=== PATIENT | male | born 1945 | race Hispanic/Latino ===

== ENCOUNTER 2018-09-18 16:38 | Inpatient (IN) | payer MEDICARE ==
[2018-09-18 16:46] VITALS: BMI 35.9
--- NOTE | 2018-09-18 17:56 | C.PDOC ---
History Of Present Illness Patient is a 73 year old male, with a PMHx of diabetes, who presents to the ED c/o bilateral lower extremity swelling with associated pain and watery yellow and green drainage that has been present for the past week. Patient reports that he has had prior similar symptoms in the past. Patient claims that his diabetes runs in the family and is "not able to be treated by any medication". Patient also refuses to have his blood taken from his arms, only from his hands. He denies any CP, SOB, fever, abdominal pain, nausea, vomiting, or diarrhea. Time Seen by Provider: 09/18/18 17:14 Chief Complaint (Nursing): Abnormal Skin Integrity History Per: Patient History/Exam Limitations: no limitations Onset/Duration Of Symptoms: Days (one week) Current Symptoms Are (Timing): Still Present Quality Of Symptoms: Painful, Swollen, Draining Recent travel outside of the [place]: No Additional History Per: Patient Past Medical History Reviewed: Historical Data, Nursing Documentation, Vital Signs Vital Signs: Last Vital Signs Temp 98.5 F 09/18/18 16:48 Pulse 94 H 09/18/18 16:48 Resp 16 09/18/18 16:48 BP 170/63 H 09/18/18 16:48 Pulse Ox 97 09/18/18 16:48 - Medical History PMH: No Chronic Diseases Surgical History: No Surg Hx Family History: States: No Known Family Hx - Social History Hx Alcohol Use: No Hx Substance Use: No - Immunization History Hx Tetanus Toxoid Vaccination: No Hx Influenza Vaccination: No Hx Pneumococcal Vaccination: No Review Of Systems Except As Marked, All Systems Reviewed And Found Negative. Constitutional: Negative for: Fever Cardiovascular: Negative for: Chest Pain Respiratory: Negative for: Shortness of Breath Gastrointestinal: Negative for: Nausea, Vomiting, Abdominal Pain, Diarrhea Musculoskeletal: Positive for: Leg Pain (bilateral lower leg pain, swelling, and drainage ) Physical Exam - Physical Exam Appears: Non-toxic, No Acute Distress Skin: Warm, Other (opened wounds to anterior and posterior lower legs draining yellowish green fluid ) Head: Atraumatic, Normacephalic Eye(s): bilateral: Normal Inspection Oral Mucosa: Moist Neck: Normal ROM, Supple Chest: Symmetrical, No Deformity Cardiovascular: Rhythm Regular, No Murmur Respiratory: Normal Breath Sounds, No Rales, No Rhonchi, No Wheezing Gastrointestinal/Abdominal: Soft, No Tenderness, Other (obese) Back: Normal Inspection, No CVA Tenderness Extremity: Pedal Edema (3+ pitting edema to the knees), Swelling (bilateral lower extremities), Other (erythematous bilateral lower legs) Neurological/Psych: Oriented x3, Normal Speech, Normal Motor Gait: Steady ED Course And Treatment - Laboratory Results Result Diagrams: 09/18/18 18:17 09/18/18 18:45 O2 Sat by Pulse Oximetry: 97 (on RA) Pulse Ox Interpretation: Normal Medical Decision Making Medical Decision Making: Plan: Labs Blood Culture Disposition - Disposition Disposition: HOSPITALIZED Disposition Time: 19:04 Condition: FAIR Forms: [facility] (Guyanese) - Clinical Impression Clinical Impression: Cellulitis, Skin ulcer - 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 - Scribe Statement The provider has reviewed the documentation as recorded by the Scribe Vilma Barth All medical record entries made by the Scribe were at my direction and personally dictated by me. I have reviewed the chart and agree that the record accurately reflects my personal performance of the history, physical exam, medical decision making, and the department course for this patient. I have also personally directed, reviewed, and agree with the discharge instructions and disposition. Physician Patient Turnover Patient Signed Over To: Odalis Louis Handoff Comments: PEnding labs and dispo
[2018-09-18 18:34] LABS: BASO % 0.4 % (0.0-2.0); EOS # 0.3 K/uL (0.0-0.7); EOS % 2.9 % (0.0-4.0); HEMOGLOBIN 14.8 g/dL (12.0-18.0); LYMPH # 2.2 K/uL (1.0-4.3); LYMPH % 24.4 % (20.0-40.0); MEAN CELL VOLUME 93.8 fL (80.0-94.0); MEAN CORPUSCULAR HEMOGLOBIN 31.6 pg (27.0-31.0); MEAN CORPUSCULAR HGB CONC 33.7 g/dL (33.0-37.0); MEAN PLATELET VOLUME 8.2 fL (7.2-11.7); MONO # 0.9 K/uL (0.0-0.8); MONO % 9.7 % (0.0-10.0); NEUT # 5.6 K/uL (1.8-7.0); NEUT % 62.6 % (50.0-75.0); RBC 4.67 Mil/uL (4.40-5.90); RED CELL DISTRIBUTION WIDTH 13.2 % (11.5-14.5); WHITE BLOOD COUNT 8.9 K/uL (4.8-10.8)
[2018-09-18 18:49] LABS: INR 1.1; PROTHROMBIN TIME 11.8 SECONDS (9.7-12.2)
[2018-09-18 19:01] LABS: ALB/GLOB RATIO 1.3 (1.0-2.1); ALBUMIN 4.1 g/dL (3.5-5.0); ALT/SGPT 17 U/L (21-72); AST/SGOT 27 U/L (17-59); BLOOD UREA NITROGEN 18 mg/dL (9-20); CALCIUM 8.9 mg/dl (8.6-10.4); GFR NON-AFRICAN AMERICAN > 60
[2018-09-18] MEDS ORDERED: Piperacillin/Tazobact 3.375 gm 100 ML IV STA (19:05)
[2018-09-18] MEDS ORDERED: Vancomycin 1 GM 1 GM/250 ML BAG IV STA (19:05)
[2018-09-18] MEDS ORDERED: Piperacillin/Tazobact 3.375 gm 100 ML IVPB ONE (19:19)
[2018-09-18] MEDS ORDERED: Vancomycin 1 GM 1 GM/250 ML BAG IVPB ONE (19:49)
--- NOTE | 2018-09-18 19:58 | CP.PCM.HP ---
<Emely Galeano - Last Filed: 09/18/18 23:22> History of Present Illness - History of Present Illness History of Present Illness: cc: "my leg is oozing" Mr. Beltran is a 73 year old male with a PMH of diabetes BIBA for worsening bilateral lower extremity ulcers. He states that the leg wound shave grown over the last 3 months. Since 1 week ago, the ulcers would pop on their own and "water" would leak out of them. He started popping the additional wounds to make them heal sooner. The largest wound on his L niño was popped yesterday and drained clear liquid that dried light yellow and started to smell. The largest wound on his R niño popped today and released yellow green purulent discharge for over an hour. His landlord encouraged him to go to the ED since the smell was overwhelming. The patient is unable to reach his feet and has not washed his legs since getting these leg wounds. Previous episodes of leg wounds have not popped, rather ulcerated and went away on their own. PMH: DM Med: none All: seasonal allergies. Reports nausea and gagging when smelling eggs and pork PSxHx: denies FamHx: Diabetes on Father's [place] side of the family. Father - emphysema SocHx: quit smoking at 21, denies ever alcohol, ever illicit drugs. Lives by himself in apartment. 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 He retired after his repeat trips to [facility] and his life as a member of the [employer]. DNR/DNI Proxy: none PMD: none Present on Admission - Present on Admission Any Indicators Present on Admission: Yes History of Uncontrolled Diabetes: Yes Review of Systems - Constitutional Constitutional: Weight Gain. absent: Chills, Fever, Weakness - EENT Eyes: absent: Blurred Vision, Diplopia, Discharge Nose/Mouth/Throat: Nasal Congestion, Nasal Trauma. absent: Nasal Discharge, Dysphagia, Hoarsness, Odynophagia - Cardiovascular Cardiovascular: Leg Edema, Leg Ulcers. absent: Chest Pain, Dyspnea, Palpitations - Respiratory Respiratory: absent: Cough, Dyspnea, Chest Congestion - Gastrointestinal Gastrointestinal: absent: Constipation, Diarrhea, Nausea, Vomiting - Genitourinary Genitourinary: absent: Difficulty Urinating, Dysuria, Nocturia, Urinary Incontinence - Musculoskeletal Musculoskeletal: Joint Swelling, Myalgias, Numbness. absent: Tingling - Integumentary Integumentary: Lesions, New Lesions - Neurological Neurological: Numbness. absent: Burning Sensations, Syncope, Tingling - Hematologic/Lymphatic Hematologic: absent: Easy Bleeding, Easy Bruising Past Patient History - Past Social History Smoking Status: Former Smoker Alcohol: None Drugs: Denies Home Situation {Lives}: Alone - ENDOCRINE/METABOLIC Hx Endocrine Disorders: Yes Hx Diabetes Mellitus Type 2: Yes - PSYCHIATRIC Hx Substance Use: No - SURGICAL HISTORY Hx Surgeries: No Meds Allergies/Adverse Reactions: Allergies Allergy/AdvReac Type Severity Reaction Status Date / Time EGG Allergy Verified 09/18/18 16:46 PORK Allergy Verified 09/18/18 16:46 trees Allergy Uncoded 09/18/18 16:46 Physical Exam - Constitutional Appears: Non-toxic, No Acute Distress - Head Exam Head Exam: ATRAUMATIC, NORMOCEPHALIC - Eye Exam Eye Exam: EOMI, Normal appearance, PERRL Pupil Exam: NORMAL ACCOMODATION - ENT Exam ENT Exam: Mucous Membranes Dry - Neck Exam Neck exam: Negative for: Lymphadenopathy, Thyromegaly - Respiratory Exam Respiratory Exam: Clear to Auscultation Bilateral, NORMAL BREATHING PATTERN. absent: Rales, Rhonchi, Wheezes - Cardiovascular Exam Cardiovascular Exam: REGULAR RHYTHM, +S1, +S2. absent: Systolic Murmur - GI/Abdominal Exam GI & Abdominal Exam: Distended, Normal Bowel Sounds, Soft. absent: Guarding, Rebound, Tenderness Additional comments: morbidly obese - Extremities Exam Extremities exam: Positive for: pedal edema, pedal pulses present. Negative for: calf tenderness Additional comments: bilateral LE edema distal to knees R leg warm to touch, erythematous with multiple open wounds L leg normo-temperature, erythematous with multiple open wounds wounds are on anterior surface of legs; no open wounds on posterior surface 3+ bilateral pitting edema - Back Exam Back exam: NORMAL INSPECTION. absent: CVA tenderness (L), CVA tenderness (R) - Neurological Exam Neurological exam: Alert, CN II-XII Intact, Motor Sensory Deficit, Oriented x3, Reflexes Normal Additional comments: complete loss of sensation distal to knees bilaterally. upon closing eyes, could not confidently state which part of which leg was being stimulated motor strength intact. movement restricted by habitus - Psychiatric Exam Psychiatric exam: Manic - Skin Skin Exam: Erythema, Normal Color, Warm Additional comments: wounds have minimal skin covering, draining thin yellow green pus Results - Vital Signs Recent Vital Signs: Last Vital Signs Temp 98.5 F 09/18/18 16:48 Pulse 83 09/18/18 19:27 Resp 16 09/18/18 19:27 BP 152/54 H 09/18/18 19:27 Pulse Ox 97 09/18/18 19:27 - Labs Result Diagrams: 09/18/18 18:17 09/18/18 18:45 Labs: Laboratory Results - last 24 hr 09/18/18 09/18/18 09/18/18 18:17 18:27 18:45 WBC 8.9 RBC 4.67 Hgb 14.8 Hct 43.8 MCV 93.8 MCH 31.6 H MCHC 33.7 RDW 13.2 Plt Count 270 MPV 8.2 Neut % (Auto) 62.6 Lymph % (Auto) 24.4 Cass % (Auto) 9.7 Eos % (Auto) 2.9 Baso % (Auto) 0.4 Neut # (Auto) 5.6 Lymph # (Auto) 2.2 Cass # (Auto) 0.9 H Eos # (Auto) 0.3 Baso # (Auto) 0.0 PT 11.8 INR 1.1 APTT 34 Sodium 139 Potassium 3.7 Chloride 104 Carbon Dioxide 26 Anion Gap 13 BUN 18 Creatinine 0.7 L Est GFR ( Amer) > 60 Est GFR (Non-Af Amer) > 60 Random Glucose 160 H Calcium 8.9 Total Bilirubin 0.4 AST 27 ALT 17 L Alkaline Phosphatase 95 Total Protein 7.2 Albumin 4.1 Globulin 3.1 Albumin/Globulin Ratio 1.3 Assessment & Plan - Assessment and Plan (Free Text) Assessment: 73yo M PMH DM admitted for cellulitis of open leg wounds bilaterally. Plan: Cellulitis Open leg wounds, bilateral - f/u Blood Cx - f/u Wound Cx, right leg - f/u Wound Cx, left leg - Tylenol 650mg PO q6 prn - Vancomycin 1gm IVPB daily (started 09/18) - Zosyn 3.375gm IVPB q8 (started 09/18) - Podiatry consulted: Dr. Keller - help appreciated - Wound Care consulted Diabetes Mellitus - f/u Hgb A1c - f/u lipid panel - Accucheck ACHS - ISS, medium - hypoglycemia protocol Hypertension Possibly white coat hypertension? Patient states that he dislikes being in hospitals and being around doctors. He gets anxious and believes his blood pressure goes up when he's sick. - monitor vitals Grandiose Thinking Disconnect with Reality - Psych consulted: Dr. Snell - help appreciated PPx - DVT: Heparin 5000u SC q8, SCDs CI 2/2 leg wounds - Diet: HHD, low Carb. Pork and Egg restricted - Palliative Care consulted for goals of care discussion and POLST as patient states he "does not want to be brought back from the if [he's] that sick" - SW/CM consulted for DC planning - PT/OT d/w Dr. Inge Galeano PGY-1 - Date & Time Date: 09/18/18 Time: 19:58 <Cornel Alcazar - Last Filed: 09/19/18 06:27> Results - Vital Signs Recent Vital Signs: Last Vital Signs Temp 98 F 09/19/18 00:00 Pulse 89 09/19/18 00:00 Resp 20 09/19/18 00:00 BP 156/74 H 09/19/18 00:00 Pulse Ox 94 L 09/19/18 00:00 - Labs Result Diagrams: 09/18/18 18:17 09/18/18 18:45 Labs: Laboratory Results - last 24 hr 09/18/18 09/18/18 09/18/18 18:17 18:27 18:45 WBC 8.9 RBC 4.67 Hgb 14.8 Hct 43.8 MCV 93.8 MCH 31.6 H MCHC 33.7 RDW 13.2 Plt Count 270 MPV 8.2 Neut % (Auto) 62.6 Lymph % (Auto) 24.4 Cass % (Auto) 9.7 Eos % (Auto) 2.9 Baso % (Auto) 0.4 Neut # (Auto) 5.6 Lymph # (Auto) 2.2 Cass # (Auto) 0.9 H Eos # (Auto) 0.3 Baso # (Auto) 0.0 PT 11.8 INR 1.1 APTT 34 Sodium 139 Potassium 3.7 Chloride 104 Carbon Dioxide 26 Anion Gap 13 BUN 18 Creatinine 0.7 L Est GFR ( Amer) > 60 Est GFR (Non-Af Amer) > 60 POC Glucose (mg/dL) Random Glucose 160 H Calcium 8.9 Total Bilirubin 0.4 AST 27 ALT 17 L Alkaline Phosphatase 95 Total Protein 7.2 Albumin 4.1 Globulin 3.1 Albumin/Globulin Ratio 1.3 09/18/18 21:16 WBC RBC Hgb Hct MCV MCH MCHC RDW Plt Count MPV Neut % (Auto) Lymph % (Auto) Cass % (Auto) Eos % (Auto) Baso % (Auto) Neut # (Auto) Lymph # (Auto) Cass # (Auto) Eos # (Auto) Baso # (Auto) PT INR APTT Sodium Potassium Chloride Carbon Dioxide Anion Gap BUN Creatinine Est GFR ( Amer) Est GFR (Non-Af Amer) POC Glucose (mg/dL) 181 H Random Glucose Calcium Total Bilirubin AST ALT Alkaline Phosphatase Total Protein Albumin Globulin Albumin/Globulin Ratio Assessment & Plan - Date & Time Date: 09/19/18 (I have seen and examined the patient. I agree with the findings and plan of care as documented by Dr. Galeano. Patient with lower extremity cellulitis and ulceration. Consult to podiatry. Ronny and Kunal for now. Wound and blood cultures. Also with history of diabetes. NISS and accuchecks. Patient exhibits grandiose thinking/delusions. Consult to psych. Monitor for acute changes.) Time: 06:25 Attending/Attestation - Attestation I have personally seen and examined this patient.: Yes I have fully participated in the care of the patient.: Yes I have reviewed all pertinent clinical information: Yes
[2018-09-18] MEDS ORDERED: Dextrose 50% SYRINGE Inj (50 ml) IV PRN (20:59)
[2018-09-18] MEDS ORDERED: Glucagon Recombinant 1 mg Inj IM PRN (20:59)
[2018-09-18] MEDS: Piperacillin/Tazobact 3.375 GM in Sodium Chloride 100 ML IVPB SCH (22:07)
[2018-09-18] MEDS: (Novolin R) Insulin Human Regular 100 units/ml vial SC SCH (22:08)
[2018-09-19] MEDS: Piperacillin/Tazobact 3.375 GM in Sodium Chloride 100 ML IVPB SCH ×3 (04:34→21:12)
[2018-09-19] MEDS: (Novolin R) Insulin Human Regular 100 units/ml vial SC SCH ×4 (08:50→21:15)
--- NOTE | 2018-09-19 11:21 | PCM.PSYCH ---
Initial Psychiatric Evaluation - Initial Psychiatric Evaluation Type of Admission: Voluntary Legal Status: Capacity Chief Complaint (in patient's own words): "I'm fine" History of Present Illness and Precipitating Events: Patient is seen, chart reviewed and plan discussed with team. Consultation was requested for his psychotic-sounding symptoms Patient is a 73 year old male, currently with no kids. Reported he did not want to have kids because, I have a untreatable form of hereditary diabetes.. He lives alone at home. Patient stated he is "half-[place] ," and has "second nature spiritual connection to the world" around him. I can always tell when my enemies are around me. He stated feeling paranoid of his enemies, identified his enemies as [place]. 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 He says he lives between [place] and , he is looking into getting more rocks and minerals for a new museum that a [place] person is opening soon. He denies memory problems. He reports having "a [place]ingle [place]" who comes to him and tells him of bad and good things that will happen. During all these bizarre statements he had full affect and in fact he seemed happy and jovial. He denies feeling suicidal or homicidal. He also reports he has been able to take care of himself, ie cook, clean, pay bills. He denied drug or alcohol use He was oriented and had 3/3 and 2/3 memory in 5 min. Psych Hx Denies ever being treated since in his early 20's in the [place]. He claimed it was to get out. Fam Psych Hx denies Medication Denies PMHx DM, obese. He was not able to take care of her hygine and had issues with his feet. Trauma Denies Current Medications: Active Medications Generic Name Dose Route Start Last Admin Trade Name Freq PRN Reason Stop Dose Admin Acetaminophen 650 mg 09/18/18 22:29 09/18/18 22:39 Tylenol 325mg Tab PO 650 mg Q6 PRN Administration Pain, Mild (1-3) Dextrose 0 ml 09/18/18 20:59 Dextrose 50% Inj IV STAT PRN Hypoglycemia Protocol Protocol Dextrose 0 gm 09/18/18 20:59 Glutose 15 PO ONCE PRN Hypoglycemia Protocol Protocol Glucagon 0 mg 09/18/18 20:59 Glucagen Diagnostic Kit IM STAT PRN Hypoglycemia Protocol Protocol Heparin Sodium (Porcine) 5,000 units 09/18/18 22:00 09/19/18 05:51 Heparin SC 5,000 units Q8 NICHOLAS Administration Dextrose 1,000 mls @ 0 mls/hr 09/18/18 20:59 Dextrose 5% In Water 1000 Ml IV .Q0M PRN Hypoglycemia Protocol Protocol Per Protocol Piperacillin Sod/Tazobactam 100 mls @ 200 mls/hr 09/18/18 21:30 09/19/18 04:34 Sod 3.375 gm/ Sodium Chloride IVPB 200 mls/hr Q8H NICHOLAS Administration Protocol Vancomycin HCl 1 gm/ Sodium 250 mls @ 166.7 mls/hr 09/18/18 21:30 09/18/18 22:07 Chloride IVPB Not Given Q24H NICHOLAS Protocol Insulin Human Regular 0 unit 09/18/18 22:00 09/19/18 08:50 Novolin R SC 2 units ACHS NICHOLAS Administration Protocol Past Psychiatric History - Past Psychiatric History Pertinent Medical Hx (Current Medical&Sleep Prob, Allergies): Allergies Allergy/AdvReac Type Severity Reaction Status Date / Time EGG Allergy Verified 09/18/18 16:46 PORK Allergy Verified 09/18/18 16:46 trees Allergy Uncoded 09/18/18 16:46 No Known Home Med 09/18/18 Review of Systems - Psychiatric Psychiatric: Abnormal Sleep Pattern, Difficulty Concentrating, Paranoia. absent: Homicidal Ideation, Suicidal Ideation Mental Status Examination - Personal Presentation Personal Presentation: Looks stated age - Affect Affect: Constricted - Motor Activity Motor Activity: Calm - Reliability in Providing Information Reliability in Providing Information: Fair - Speech Speech: Tangential - Mood Mood: Neutral - Formal Thought Process Formal Thought Process: Paranoia, Loosening of associations - Cognitive Functions Orientation: Person, Place, Situation, Time Sensorium: Alert Attention/Concentration: Easily distracted Estimate of Intelligence: Average Judgement: Imparied, as evidence by: Poor judgement Memory: Recent intact, as evidence by: Ability to recall events of the day, Remote impaired as evidenced by: Inability to recall sig life events - Risk Risk: Diminished functioning - Strength & Assets Inventory Strength & Assets Inventory: Cooperative - Limitations Limitations: Other DSM 5 DX - DSM 5 DSM 5 Diagnosis: Chronic schizophrenia - Recommended/Plan of Treatment Treatment Recommendations and Plan of Treatment: He does not want any psych meds Support and psych Reality testing (however, he likely has crystallized delusions) He can be referred to outpt psych if he agrees 33 min
[2018-09-19 13:35] LABS: URINE BILIRUBIN NEGATIVE (NEGATIVE); URINE CLARITY Clear (Clear); URINE COLOR YELLOW (YELLOW); URINE GLUCOSE (UA) Normal (Normal)
[2018-09-19 13:36] LABS: URINE BLOOD NEGATIVE (NEGATIVE); URINE PROTEIN NEGATIVE (NEGATIVE)
[2018-09-19 13:37] LABS: URINE LEUKOCYTE ESTERASE NEGATIVE Leu/uL (Negative)
[2018-09-19 14:11] LABS: BARBITURATES, UR NEGATIVE (NEGATIVE); BENZODIAZEPINES, UR NEGATIVE (NEGATIVE); PHENCYCLIDINE, UR NEGATIVE (NEGATIVE)
--- NOTE | 2018-09-19 14:48 | CP.PCM.CON ---
History of Present Illness - History of Present Illness History of Present Illness: Palliative consult requested by Doctor Waleska for goals of care discussion Patient is a 73 yo male admitted from home with swelling of B/L LEs with serous drainage. Patient had similar symptoms in the past but this time got worse. Patient diagnosed with Cellulitis and Skin ulcers and treated with Vanco and Zosyn IV. PMH: DM, poorly treated, patient believes medications do not work for him Soc. Hx: single, reports being for 6 months to woman, lives alone of [employer]. Hx: denied Review of Systems - Constitutional Constitutional: absent: As Per HPI, Anorexia, Chills, Daytime Sleepiness, Excessive Sweating, Fatigue, Fever, Frequent Falls, Headache, Increased Appetite, Lethargy, Malaise, Night Sweats, Snoring, Sleep Apnea, Weight Gain, Weight Loss, Weakness, Other - EENT Eyes: absent: As Per HPI, Blind Spots, Blurred Vision, Change in Vision, Decreased Night Vision, Diplopia, Discharge, Dry Eye, Exophthalmos, Floaters, Irritation, Itchy Eyes, Loss of Peripheral Vision, Pain, Photophobia, Requires Corrective Lenses, Sees Flashes, Spots in Vision, Tunnel Vision, Other Visual Disturbances, Loss of Vision, Other Ears: absent: As Per HPI, Decreased Hearing, Ear Discharge, Ear Pain, Tinnitus, Abnormal Hearing, Disequilibrium, Dizziness, Other Nose/Mouth/Throat: absent: As Per HPI, Epistaxis, Nasal Congestion, Nasal Discharge, Nasal Obstruction, Nasal Trauma, Nose Pain, Post Nasal Drip, Sinus Pain, Sinus Pressure, Bleeding Gums, Change in Voice, Dental Pain, Dry Mouth, Dysphagia, Halitosis, Hoarsness, Lip Swelling, Mouth Lesions, Mouth Pain, O dynophagia, Sore Throat, Throat Swelling, Tongue Swelling, Facial Pain, Neck Pain, Neck Mass, Other - Cardiovascular Cardiovascular: Leg Edema, Leg Ulcers - Respiratory Respiratory: absent: As Per HPI, Cough, Dyspnea, Hemoptysis, Dyspnea on Exertion, Wheezing, Snoring, Stridor, Pain on Inspiration, Chest Congestion, Excessive Mucous Production, Change in Mucous Color, Pain with Coughing, Other - Gastrointestinal Gastrointestinal: absent: As Per HPI, Abdominal Pain, Belching, Bloating, Change in Bowel Habits, Change in Stool Character, Coffee Ground Emesis, Constipation, Cramping, Diarrhea, Dyspepsia, Dysphagia, Early Satiety, Excessive Flatus, Fecal Incontinence, Heartburn, Hematemesis, Hematochezia, Loose Stools, Melena, Nausea, Odynophagia, Temesmus, Vomiting, Other - Genitourinary Genitourinary: absent: As Per HPI, Change in Urinary Stream, Difficulty Urinating, Dysuria, Flank Pain, Hematuria, Pyuria, Nocturia, Urinary Incontin ence, Urinary Frequency, Urinary Hesitance, Urinary Urgency, Voiding Freq/Small Amts, Freq UTI, Hx Renal/Bladder Calculi, Hx /Renal Surgery, Bladder Distension, Other - Musculoskeletal Musculoskeletal: absent: As Per HPI, Abnormal Gait, Arthralgias, Atrophy, Back Pain, Deformity, Joint Swelling, Limited Range of Motion, Loss of Height, Muscle Cramps, Muscle Weakness, Myalgias, Neck Pain, Numbness, Radiating Pain into Limb, Stiffness, Tingling, Other - Integumentary Integumentary: Skin Ulcer, Wounds - Neurological Neurological: Abnormal Gait - Psychiatric Psychiatric: Other Additional comments: deterioration of reality, grandiose ideas - Endocrine Endocrine: Change in Body Appearance - Hematologic/Lymphatic Hematologic: absent: As Per HPI, Easy Bleeding, Easy Bruising, Lymphadenopathy, Other Past Patient History - Past Medical History & Family History Past Medical History?: Yes - Past Social History Smoking Status: Former Smoker Alcohol: None Drugs: Denies Home Situation {Lives}: Alone - ENDOCRINE/METABOLIC Hx Endocrine Disorders: Yes Hx Diabetes Mellitus Type 2: Yes - MUSCULOSKELETAL/RHEUMATOLOGICAL Hx Falls: No - PSYCHIATRIC Hx Substance Use: No - SURGICAL HISTORY Hx Surgeries: No - ANESTHESIA Hx Anesthesia: Yes Hx Anesthesia Reactions: Yes Hx Malignant Hyperthermia: No Has any member of the family had a problem w/ anesthesia?: No Meds Allergies/Adverse Reactions: Allergies Allergy/AdvReac Type Severity Reaction Status Date / Time EGG Allergy Verified 09/18/18 16:46 PORK Allergy Verified 09/18/18 16:46 trees Allergy Uncoded 09/18/18 16:46 - Medications Medications: Current Medications Acetaminophen (Tylenol 325mg Tab) 650 mg PO Q6 PRN PRN Reason: Pain, Mild (1-3) Last Admin: 09/18/18 22:39 Dose: 650 mg Dextrose (Dextrose 50% Inj) 0 ml IV STAT PRN; Protocol PRN Reason: Hypoglycemia Protocol Dextrose (Glutose 15) 0 gm PO ONCE PRN; Protocol PRN Reason: Hypoglycemia Protocol Glucagon (Glucagen Diagnostic Kit) 0 mg IM STAT PRN; Protocol PRN Reason: Hypoglycemia Protocol Heparin Sodium (Porcine) (Heparin) 5,000 units SC Q8 NICHOLAS Last Admin: 09/19/18 05:51 Dose: 5,000 units Dextrose (Dextrose 5% In Water 1000 Ml) 1,000 mls @ 0 mls/hr IV .Q0M PRN; Protocol PRN Reason: Hypoglycemia Protocol Piperacillin Sod/Tazobactam (Sod 3.375 gm/ Sodium Chloride) 100 mls @ 200 mls/hr IVPB Q8H NICHOLAS; Protocol Last Admin: 09/19/18 04:34 Dose: 200 mls/hr Vancomycin HCl 1 gm/ Sodium (Chloride) 250 mls @ 166.7 mls/hr IVPB Q24H NICHOLAS; Protocol Last Admin: 09/18/18 22:07 Dose: Not Given Insulin Human Regular (Novolin R) 0 unit SC ACHS NICHOLAS; Protocol Last Admin: 09/19/18 12:49 Dose: Not Given Physical Exam - Constitutional Appears: No Acute Distress, Chronically Ill - Head Exam Head Exam: ATRAUMATIC, NORMAL INSPECTION, NORMOCEPHALIC - Eye Exam Eye Exam: EOMI, Normal appearance, PERRL Pupil Exam: NORMAL ACCOMODATION, PERRL - ENT Exam ENT Exam: Mucous Membranes Moist, Normal Exam - Neck Exam Neck exam: Positive for: Normal Inspection - Respiratory Exam Respiratory Exam: Decreased Breath Sounds, Clear to Auscultation Bilateral, NORM AL BREATHING PATTERN - Cardiovascular Exam Cardiovascular Exam: REGULAR RHYTHM, +S1, +S2 - GI/Abdominal Exam GI & Abdominal Exam: Normal Bowel Sounds, Soft - Rectal Exam Rectal Exam: Deferred - Extremities Exam Extremities exam: Positive for: calf tenderness, pedal edema Additional comments: open skin ulcer, positive drainage, redness and swelling - Back Exam Back exam: NORMAL INSPECTION - Neurological Exam Neurological exam: Alert, Oriented x3 - Psychiatric Exam Psychiatric exam: Flat Affect - Skin Skin Exam: Urticaria, Vesicles Results - Vital Signs Recent Vital Signs: Last Vital Signs Temp 97.7 F 09/19/18 08:01 Pulse 74 09/19/18 08:01 Resp 20 09/19/18 08:01 BP 177/85 H 09/19/18 08:01 Pulse Ox 94 L 09/19/18 08:01 - Labs Result Diagrams: 09/18/18 18:17 09/18/18 18:45 Labs: Laboratory Results - last 24 hr 09/18/18 09/18/18 09/18/18 18:17 18:27 18:45 WBC 8.9 RBC 4.67 Hgb 14.8 Hct 43.8 MCV 93.8 MCH 31.6 H MCHC 33.7 RDW 13.2 Plt Count 270 MPV 8.2 Neut % (Auto) 62.6 Lymph % (Auto) 24.4 Gaines % (Auto) 9.7 Eos % (Auto) 2.9 Baso % (Auto) 0.4 Neut # (Auto) 5.6 Lymph # (Auto) 2.2 Gaines # (Auto) 0.9 H Eos # (Auto) 0.3 Baso # (Auto) 0.0 PT 11.8 INR 1.1 APTT 34 Sodium 139 Potassium 3.7 Chloride 104 Carbon Dioxide 26 Anion Gap 13 BUN 18 Creatinine 0.7 L Est GFR ( Amer) > 60 Est GFR (Non-Af Amer) > 60 POC Glucose (mg/dL) Random Glucose 160 H Calcium 8.9 Total Bilirubin 0.4 AST 27 ALT 17 L Alkaline Phosphatase 95 Total Protein 7.2 Albumin 4.1 Globulin 3.1 Albumin/Globulin Ratio 1.3 Urine Color Urine Clarity Urine pH Ur Specific Buckley Urine Protein Urine Glucose (UA) Urine Ketones Urine Blood Urine Nitrate Urine Bilirubin Urine Urobilinogen Ur Leukocyte Esterase Urine WBC (Auto) Urine RBC (Auto) Ur Barbiturates Screen Ur Phencyclidine Scrn U Benzodiazepines Scrn U Oth Cocaine Metabols U Cannabinoids Screen 09/18/18 09/19/18 09/19/18 21:16 08:22 13:21 WBC RBC Hgb Hct MCV MCH MCHC RDW Plt Count MPV Neut % (Auto) Lymph % (Auto) Gaines % (Auto) Eos % (Auto) Baso % (Auto) Neut # (Auto) Lymph # (Auto) Gaines # (Auto) Eos # (Auto) Baso # (Auto) PT INR APTT Sodium Potassium Chloride Carbon Dioxide Anion Gap BUN Creatinine Est GFR ( Amer) Est GFR (Non-Af Amer) POC Glucose (mg/dL) 181 H 157 H Random Glucose Calcium Total Bilirubin AST ALT Alkaline Phosphatase Total Protein Albumin Globulin Albumin/Globulin Ratio Urine Color Urine Clarity Urine pH Ur Specific Buckley Urine Protein Urine Glucose (UA) Urine Ketones Urine Blood Urine Nitrate Urine Bilirubin Urine Urobilinogen Ur Leukocyte Esterase Urine WBC (Auto) Urine RBC (Auto) Ur Barbiturates Screen Negative Ur Phencyclidine Scrn Negative U Benzodiazepines Scrn Negative U Oth Cocaine Metabols Negative U Cannabinoids Screen Negative 09/19/18 13:21 WBC RBC Hgb Hct MCV MCH MCHC RDW Plt Count MPV Neut % (Auto) Lymph % (Auto) Gaines % (Auto) Eos % (Auto) Baso % (Auto) Neut # (Auto) Lymph # (Auto) Gaines # (Auto) Eos # (Auto) Baso # (Auto) PT INR APTT Sodium Potassium Chloride Carbon Dioxide Anion Gap BUN Creatinine Est GFR ( Amer) Est GFR (Non-Af Amer) POC Glucose (mg/dL) Random Glucose Calcium Total Bilirubin AST ALT Alkaline Phosphatase Total Protein Albumin Globulin Albumin/Globulin Ratio Urine Color Yellow Urine Clarity Clear Urine pH 6.0 Ur Specific Buckley 1.019 Urine Protein Negative Urine Glucose (UA) Normal Urine Ketones Negative Urine Blood Negative Urine Nitrate Negative Urine Bilirubin Negative Urine Urobilinogen 4.0 Ur Leukocyte Esterase Negative Urine WBC (Auto) 2 Urine RBC (Auto) 1 Ur Barbiturates Screen Ur Phencyclidine Scrn U Benzodiazepines Scrn U Oth Cocaine Metabols U Cannabinoids Screen Assessment & Plan - Assessment and Plan (Free Text) Assessment: Palliative consult There was no Advance directive on the chart, PPS 60% I reviewed all medical charts and diagnostic studies, examined and interviewed patient in the bed. Patient is alert, oriented x 3, with speech that is clear. Patient is unrealistic regarding his condition, is having grandiose ides. 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 Breath sounds normal, denies cough/SOB o2Sat 94 % RA. HR 74, denies chest pain, rhythm regular. Abdomen large, soft, active bowel sounds, patient is overweight. LEs are red, edematous with open wounds to to both heals and shins. Dressing is applied to both legs from ankle up to the bellow the knees. Denies pain. patient is convinced he could "walk and get better; Pain : denies pain WBC8.9, Hb 14.8, blood sugar 160 Meds: Vanco IV, Zosyn IV, Novolin R sliding scale I discussed patient's condition with him. patient states being in need to leave hospital as his bills are pending and he had a Court date that he could not miss. I acknowledged his concerns and further elicited his understanding about his condition. I offered my concerns that he may not be able to walk despite his desire to leave. Patient is convinced that he would get better if he only could walk as no meds were working for him. I reassured patient I would ask SW to assist him with delaying his court date a nd that at present his health takes priority. He agreed . 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 I assisted him with operating TV. Code status discussed. Patient was very clear that he would not want to be treated aggressively if his condition worsens. DNR/DNI explained. Patient stated understanding and signed POLST. Impression * Poorly controlled diabetes * PVD * Ulcers and draining wounds of LEs * Patient exercise delusional behavior * Patient is not capable of understanding his condition * Patient needs assistance from SS regarding his Court appointment date that needs to be delayed as per patient's statement * Patient wishes to be DNR/DNI Suggestions * Continue Novolin R per sliding scale * Continue care of foot ulcers * Would refer to Psych for evaluation * SS to assist patient with resolving his issues Court related * Would plan MARY for completion of IV antibiotics and wound care * DNR/DNi I will sign off at this point. Advance care planing 60 min.
--- NOTE | 2018-09-19 14:53 | CARD ---
APPROVED REPORT Date of service: 09/19/2018 EXAM: Two-dimensional and M-mode echocardiogram with Doppler and color Doppler. Other Information Quality : AverageRhythm : NSR INDICATION Peripheral Edema RISK FACTORS Diabetes 2D DIMENSIONS IVSd1.2 (0.7-1.1cm)LVDd4.5 (3.9-5.9cm) PWd1.1 (0.7-1.1cm)LA [id number] (18-58mL) LVDs2.7 (2.5-4.0cm)FS (%) 39.7 % LVEF (%)70.3 (>50%)LVEF (Fuentes's)60.36 % M-Mode DIMENSIONS Left Atrium (MM)4.11 (2.5-4.0cm)IVSd1.24 (0.7-1.1cm) Aortic Root3.89 (2.2-3.7cm)LVDd6.28 (4.0-5.6cm) Aortic Cusp Exc.2.73 (1.5-2.0cm)PWd1.07 (0.7-1.1cm) FS (%) 33 %LVDs4.19 (2.0-3.8cm) LVEF (%)61 (>50%) Mitral Valve MV E Wpdxrrsb74.4cm/sMV A Qdhppfyi095.1cm/sE/A ratio0.7 TDI Lateral E' Peak V10.05cm/sMedial E' Peak V6.71cm/sE/Lateral E'6.9 E/Medial E'10.3 Tricuspid Valve TR Peak Lfkblehg485rv/sTR Peak Gr.44vfPbQGNZ12fkWe LEFT VENTRICLE The left ventricle is normal size. There is normal left ventricular wall thickness. The left ventricular function is normal. The left ventricular ejection fraction is within the normal range. No regional wall motion abnormalities noted. No left ventricle thrombus noted on this study. There is no ventricular septal defect visualized. There is no left ventricular aneurysm. There is no mass noted in the left ventricle. RIGHT VENTRICLE The right ventricle is normal size. There is normal right ventricular wall thickness. The right ventricular systolic function is normal. ATRIA The left atrium size is normal. The right atrium size is normal. The interatrial septum is intact with no evidence for an atrial septal defect. AORTIC VALVE The aortic valve is normal in structure and function. No aortic regurgitation is present. There is no aortic valvular stenosis. There is no aortic valvular vegetation. MITRAL VALVE The mitral valve is normal in structure and function. There is no evidence of mitral valve prolapse. There is no mitral valve stenosis. There is no mitral valve regurgitation noted. TRICUSPID VALVE The tricuspid valve is normal in structure and function. There is no tricuspid valve regurgitation noted. There is no tricuspid valve prolapse or vegetation. There is no tricuspid valve stenosis. PULMONIC VALVE The pulmonary valve is normal in structure and function. There is no pulmonic valvular regurgitation. There is no pulmonic valvular stenosis. GREAT VESSELS The aortic root is normal in size. The ascending aorta is normal in size. The pulmonary artery is normal. The IVC is normal in size and collapses >50% with inspiration. PERICARDIAL EFFUSION The pericardium appears normal. There is no pleural effusion. <Conclusion> The left ventricular function is normal. The left ventricular ejection fraction is within the normal range. No regional wall motion abnormalities noted.
[2018-09-19 15:44] LABS: OPIATES, UR NEGATIVE (NEGATIVE)
--- NOTE | 2018-09-19 16:04 | CP.PCM.PN ---
Subjective - Date & Time of Evaluation Date of Evaluation: 09/19/18 Time of Evaluation: 15:59 - Subjective Subjective: Podiatry Consult Note for Dr. Keller 73M with PMH diabetes seen and evaluated at bedside for b/l lower extremity ulcerations. Patient seems very detached from reality making it difficult to attain an accurate history from him. He denies any pain to his wounds. Per nursing no overnight events. Objective - Vital Signs/Intake and Output Vital Signs (last 24 hours): Temp Pulse Resp BP Pulse Ox 97.7 F 74 20 177/85 H 94 L 09/19/18 08:01 09/19/18 08:01 09/19/18 08:01 09/19/18 08:01 09/19/18 08:01 Intake and Output: 09/19/18 09/19/18 06:59 18:59 Intake Total 760 Balance 760 - Medications Medications: Current Medications Acetaminophen (Tylenol 325mg Tab) 650 mg PO Q6 PRN PRN Reason: Pain, Mild (1-3) Last Admin: 09/18/18 22:39 Dose: 650 mg Dextrose (Dextrose 50% Inj) 0 ml IV STAT PRN; Protocol PRN Reason: Hypoglycemia Protocol Dextrose (Glutose 15) 0 gm PO ONCE PRN; Protocol PRN Reason: Hypoglycemia Protocol Glucagon (Glucagen Diagnostic Kit) 0 mg IM STAT PRN; Protocol PRN Reason: Hypoglycemia Protocol Heparin Sodium (Porcine) (Heparin) 5,000 units SC Q8 NICHOLAS Last Admin: 09/19/18 14:43 Dose: 5,000 units Dextrose (Dextrose 5% In Water 1000 Ml) 1,000 mls @ 0 mls/hr IV .Q0M PRN; Protocol PRN Reason: Hypoglycemia Protocol Piperacillin Sod/Tazobactam (Sod 3.375 gm/ Sodium Chloride) 100 mls @ 200 mls/hr IVPB Q8H NICHOLAS; Protocol Last Admin: 09/19/18 14:30 Dose: 200 mls/hr Vancomycin HCl 1 gm/ Sodium (Chloride) 250 mls @ 166.7 mls/hr IVPB Q24H NICHOLAS; Protocol Last Admin: 09/18/18 22:07 Dose: Not Given Insulin Human Regular (Novolin R) 0 unit SC ACHS NICHOLAS; Protocol Last Admin: 09/19/18 12:49 Dose: Not Given - Labs Labs: 09/18/18 18:17 09/18/18 18:45 PT 11.8 SECONDS (9.7-12.2) 09/18/18 18:27 INR 1.1 09/18/18 18:27 APTT 34 SECONDS (21-34) 09/18/18 18:27 - Constitutional Appears: Non-toxic, No Acute Distress - Extremities Exam Additional comments: B/l LE focused exam: Vasc: DP/PT pulses fully palpable 1/4 b/l. Skin temperature warm to warm from proximal to distal WNL. CFT < 3 seconds to all digits b/l. Minimal edema noted to b/l LE Neuro: Epicritic and protective sensation grossly intact b/l Derm: Multiple superficial, circular ulcerations noted to anterior shins b/l. Erythema and minimal serous drainage noted to all wounds. No malodor, purulence, fluctuance, tracking, tunneling or undermining appreciated. No other clinical signs of infection noted. Toenails 1-5 noted to be dystrophic, elongated, and thickened MSK: Pain on palpation of all ulcer sites. No gross deformities noted - Neurological Exam Neurological Exam: Alert, Awake - Psychiatric Exam Psychiatric exam: Normal Affect, Normal Mood Assessment and Plan - Assessment and Plan (Free Text) Assessment: 73M with PMH diabetes seen and evaluated at bedside for b/l lower extremity ulcerations. Plan: Patient seen and evaluated with Dr. Keller Afebrile, absent leukocytosis Continue abx F/u arterial duplex scan Wounds dressed with RIN Moreira No plan for surgical intervention at this time Podiatry will continue to follow while patient in house
--- NOTE | 2018-09-19 17:06 | CP.PCM.PN ---
<Evelyn Breen P - Last Filed: 09/19/18 21:12> Subjective - Date & Time of Evaluation Date of Evaluation: 09/19/18 Time of Evaluation: 08:00 - Subjective Subjective: Progress note for Dr. Trivedi. Patient seen and examined at bedside. He is happy podiatry has come and cut his toenails. He has no complaints at this time. Denies pain, nausea, vomiting, fever, chills. Objective - Vital Signs/Intake and Output Vital Signs (last 24 hours): Temp Pulse Resp BP Pulse Ox 97.7 F 74 20 177/85 H 94 L 09/19/18 08:01 09/19/18 08:01 09/19/18 08:01 09/19/18 08:01 09/19/18 08:01 Intake and Output: 09/19/18 09/19/18 06:59 18:59 Intake Total 760 580 Balance 760 580 - Medications Medications: Current Medications Acetaminophen (Tylenol 325mg Tab) 650 mg PO Q6 PRN PRN Reason: Pain, Mild (1-3) Last Admin: 09/18/18 22:39 Dose: 650 mg Dextrose (Dextrose 50% Inj) 0 ml IV STAT PRN; Protocol PRN Reason: Hypoglycemia Protocol Dextrose (Glutose 15) 0 gm PO ONCE PRN; Protocol PRN Reason: Hypoglycemia Protocol Glucagon (Glucagen Diagnostic Kit) 0 mg IM STAT PRN; Protocol PRN Reason: Hypoglycemia Protocol Heparin Sodium (Porcine) (Heparin) 5,000 units SC Q8 [facility] Last Admin: 09/19/18 14:43 Dose: 5,000 units Dextrose (Dextrose 5% In Water 1000 Ml) 1,000 mls @ 0 mls/hr IV .Q0M PRN; Protocol PRN Reason: Hypoglycemia Protocol Piperacillin Sod/Tazobactam (Sod 3.375 gm/ Sodium Chloride) 100 mls @ 200 mls/hr IVPB Q8H [facility]; Protocol Last Admin: 09/19/18 14:30 Dose: 200 mls/hr Vancomycin HCl 1 gm/ Sodium (Chloride) 250 mls @ 166.7 mls/hr IVPB Q24H [facility]; Protocol Last Admin: 09/18/18 22:07 Dose: Not Given Insulin Human Regular (Novolin R) 0 unit SC ACHS [facility]; Protocol Last Admin: 09/19/18 12:49 Dose: Not Given - Labs Labs: 09/18/18 18:17 09/18/18 18:45 PT 11.8 SECONDS (9.7-12.2) 09/18/18 18:27 INR 1.1 09/18/18 18:27 APTT 34 SECONDS (21-34) 09/18/18 18:27 - Constitutional Appears: No Acute Distress, Unkempt, Other (malodorous) - Head Exam Head Exam: ATRAUMATIC, NORMOCEPHALIC - Eye Exam Eye Exam: EOMI, Normal appearance, PERRL Pupil Exam: NORMAL ACCOMODATION - ENT Exam ENT Exam: Mucous Membranes Moist, Normal Exam - Neck Exam Neck Exam: Full ROM. absent: Lymphadenopathy - Respiratory Exam Respiratory Exam: Clear to Ausculation Bilateral, NORMAL BREATHING PATTERN. absent: Decreased Breath Sounds, Rales, Rhonchi, Wheezes - Cardiovascular Exam Cardiovascular Exam: REGULAR RHYTHM, +S1, +S2. absent: Murmur - GI/Abdominal Exam GI & Abdominal Exam: Soft, Normal Bowel Sounds. absent: Guarding, Tenderness Additional comments: Obese - Extremities Exam Extremities Exam: Normal Capillary Refill. absent: Calf Tenderness, Tenderness Additional comments: Moves all extremities. - Neurological Exam Neurological Exam: Alert, Awake, CN II-XII Intact Neuro motor strength exam: Left Upper Extremity: 5, Right Upper Extremity: 5, Left Lower Extremity: 5, Right Lower Extremity: 5 - Psychiatric Exam Additional comments: Tangental. Ideas of grandeur. - Skin Additional comments: Toe nails clipped. LE wounds dressed bilaterally, dressing c/d/i Assessment and Plan - Assessment and Plan (Free Text) Plan: 73yo M PMH DM admitted for cellulitis of open leg wounds bilaterally. Cellulitis Open leg wounds, bilateral - f/u Blood Cx- NG x 24H - f/u Wound Cx, right leg-pending - f/u Wound Cx, left leg-pending - Tylenol 650mg PO q6 prn - Vancomycin 1gm IVPB daily (started 09/18) - Zosyn 3.375gm IVPB q8 (started 09/18) - Podiatry consulted: Dr. Keller - help appreciated - Venous dopplers- prelim read negative - Wound Care consulted Diabetes Mellitus - f/u Hgb A1c - f/u lipid panel - Accucheck ACHS - ISS, medium - hypoglycemia protocol Hypertension Possibly white coat hypertension? Patient states that he dislikes being in hospitals and being around doctors. He gets anxious and believes his blood pressure goes up when he's sick. -Echo- LVEF 70%. No regional wall motion abnormalities noted. 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 Simeon. F/u recs -UDS negative PPx - DVT: Heparin 5000u SC q8, SCDs CI 2/2 leg wounds - Diet: HHD, low Carb. Pork and Egg restricted - Palliative Care consulted for goals of care discussion and POLST as patient states he "does not want to be brought back from the if [he's] that sick" -POLST DNR/DNI - SW/CM consulted for DC planning - PT/OT Case discussed with Dr. Trivedi. Evelyn Breen, PGY-1 <Gary Trivedi - Last Filed: 09/20/18 18:10> Objective - Vital Signs/Intake and Output Vital Signs (last 24 hours): Temp Pulse Resp BP Pulse Ox 97.4 F L 79 20 160/83 H 98 09/20/18 16:00 09/20/18 16:00 09/20/18 16:00 09/20/18 16:00 09/20/18 16:00 Intake and Output: 09/20/18 09/20/18 06:59 18:59 Intake Total 560 Balance 560 - Medications Medications: Current Medications Acetaminophen (Tylenol 325mg Tab) 650 mg PO Q6 PRN PRN Reason: Pain, Mild (1-3) Last Admin: 09/18/18 22:39 Dose: 650 mg Dextrose (Dextrose 50% Inj) 0 ml IV STAT PRN; Protocol PRN Reason: Hypoglycemia Protocol Dextrose (Glutose 15) 0 gm PO ONCE PRN; Protocol PRN Reason: Hypoglycemia Protocol Glucagon (Glucagen Diagnostic Kit) 0 mg IM STAT PRN; Protocol PRN Reason: Hypoglycemia Protocol Heparin Sodium (Porcine) (Heparin) 5,000 units SC Q8 [facility] Last Admin: 09/20/18 13:05 Dose: Not Given Dextrose (Dextrose 5% In Water 1000 Ml) 1,000 mls @ 0 mls/hr IV .Q0M PRN; Protocol PRN Reason: Hypoglycemia Protocol Piperacillin Sod/Tazobactam (Sod 3.375 gm/ Sodium Chloride) 100 mls @ 200 mls/hr IVPB Q8H [facility]; Protocol Last Admin: 09/20/18 13:04 Dose: 200 mls/hr Vancomycin HCl 1 gm/ Sodium (Chloride) 250 mls @ 166.7 mls/hr IVPB Q24H [facility]; Protocol Last Admin: 09/19/18 21:14 Dose: 166.7 mls/hr Insulin Human Regular (Novolin R) 0 unit SC ACHS [facility]; Protocol Last Admin: 09/20/18 17:30 Dose: Not Given Lisinopril (Zestril) 10 mg PO DAILY [facility] Last Admin: 09/20/18 10:44 Dose: Not Given - Labs Labs: 09/18/18 18:17 09/18/18 18:45 PT 11.8 SECONDS (9.7-12.2) 09/18/18 18:27 INR 1.1 09/18/18 18:27 APTT 34 SECONDS (21-34) 09/18/18 18:27 Attending/Attestation - Attestation I have personally seen and examined this patient.: Yes I have fully participated in the care of the patient.: Yes I have reviewed all pertinent clinical information, including history, physical exam and plan: Yes Notes (Text): Seen and examined 1.Cellulites and Infected leg wounds 2.Psychosis r/o DM and HTN Continue antibiotics
[2018-09-20] MEDS: Piperacillin/Tazobact 3.375 GM in Sodium Chloride 100 ML IVPB SCH ×3 (05:23→21:29)
[2018-09-20] MEDS: (Novolin R) Insulin Human Regular 100 units/ml vial SC SCH ×4 (08:10→21:37)
--- NOTE | 2018-09-20 10:01 | CP.PCM.PN ---
Subjective - Date & Time of Evaluation Date of Evaluation: 09/20/18 Time of Evaluation: 11:00 - Subjective Subjective: Seen and examined this morning. 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 Feels better,leg swelling is better. He thinks his leg wound is healing . Objective - Vital Signs/Intake and Output Vital Signs (last 24 hours): Temp Pulse Resp BP Pulse Ox 97.8 F 69 20 160/75 H 95 09/20/18 07:00 09/20/18 07:00 09/20/18 07:00 09/20/18 07:00 09/20/18 07:00 Intake and Output: 09/20/18 09/20/18 06:59 18:59 Intake Total 110 Balance 110 - Medications Medications: Current Medications Acetaminophen (Tylenol 325mg Tab) 650 mg PO Q6 PRN PRN Reason: Pain, Mild (1-3) Last Admin: 09/18/18 22:39 Dose: 650 mg Dextrose (Dextrose 50% Inj) 0 ml IV STAT PRN; Protocol PRN Reason: Hypoglycemia Protocol Dextrose (Glutose 15) 0 gm PO ONCE PRN; Protocol PRN Reason: Hypoglycemia Protocol Glucagon (Glucagen Diagnostic Kit) 0 mg IM STAT PRN; Protocol PRN Reason: Hypoglycemia Protocol Heparin Sodium (Porcine) (Heparin) 5,000 units SC Q8 [facility] Last Admin: 09/20/18 06:29 Dose: Not Given Dextrose (Dextrose 5% In Water 1000 Ml) 1,000 mls @ 0 mls/hr IV .Q0M PRN; Protocol PRN Reason: Hypoglycemia Protocol Piperacillin Sod/Tazobactam (Sod 3.375 gm/ Sodium Chloride) 100 mls @ 200 mls/hr IVPB Q8H [facility]; Protocol Last Admin: 09/20/18 05:23 Dose: 200 mls/hr Vancomycin HCl 1 gm/ Sodium (Chloride) 250 mls @ 166.7 mls/hr IVPB Q24H [facility]; Protocol Last Admin: 09/19/18 21:14 Dose: 166.7 mls/hr Insulin Human Regular (Novolin R) 0 unit SC ACHS [facility]; Protocol Last Admin: 09/20/18 08:10 Dose: Not Given - Labs Labs: 09/18/18 18:17 09/18/18 18:45 PT 11.8 SECONDS (9.7-12.2) 09/18/18 18:27 INR 1.1 09/18/18 18:27 APTT 34 SECONDS (21-34) 09/18/18 18:27 - Constitutional Appears: Non-toxic, In Acute Distress - Head Exam Head Exam: NORMAL INSPECTION - Eye Exam Eye Exam: Normal appearance - ENT Exam ENT Exam: Mucous Membranes Moist, Normal Oropharynx - Neck Exam Neck Exam: Full ROM - Respiratory Exam Respiratory Exam: Clear to Ausculation Bilateral, NORMAL BREATHING PATTERN - Cardiovascular Exam Cardiovascular Exam: REGULAR RHYTHM - GI/Abdominal Exam GI & Abdominal Exam: Soft, Normal Bowel Sounds - Back Exam Back Exam: Full ROM, NORMAL INSPECTION - Neurological Exam Neurological Exam: Awake, Oriented x3 - Psychiatric Exam Psychiatric exam: Manic - Skin Skin Exam: Dry, Intact. absent: Erythema (leg), Normal Color Assessment and Plan - Assessment and Plan (Free Text) Plan: 1. Cellulitis and infected leg wounds Open leg wounds, bilateral Blood Cx- NG x 24H we will follow wound cultures Tylenol 650mg PO q6 prn Continue Vancomycin 1gm IVPB daily (started 09/18) and Zosyn 3.375gm IVPB q8 (started 09/18) Podiatry consulted: Dr. Keller - help appreciated Venous dopplers- prelim read negative,follow report Wound Care consulted 2. Diabetes Mellitus ? Patient states that he has DM,not diagnosed follow HA1c,monitor sugar Encourage to loose weight 3. Hypertension Echo- LVEF 70%. No regional wall motion abnormalities noted. normal LV start on ACEI 4. 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 Patient will needs in patient psychotherapy for his psychosis 5.PPx DVT: Heparin 5000u SC q8, SCDs CI 2/2 leg wounds Diet: HHD, low Carb. Pork and Egg restricted POLST DNR/DNI follow PT and OT,need home card service and social service patient is not ready for discharge .His cellulites and infected wounds needs IV antibiotics
--- NOTE | 2018-09-20 18:56 | CP.PCM.PN ---
Subjective - Date & Time of Evaluation Date of Evaluation: 09/20/18 Time of Evaluation: 18:53 - Subjective Subjective: Podiatry Progress Note for Dr. Keller 73M with H diabetes seen and evaluated at bedside for b/l lower extremity ulcerations. He denies any pain to his wounds. Per nursing no overnight events. Objective - Vital Signs/Intake and Output Vital Signs (last 24 hours): Temp Pulse Resp BP Pulse Ox 97.4 F L 79 20 160/83 H 98 09/20/18 16:00 09/20/18 16:00 09/20/18 16:00 09/20/18 16:00 09/20/18 16:00 Intake and Output: 09/20/18 09/20/18 06:59 18:59 Intake Total 560 Balance 560 - Medications Medications: Current Medications Acetaminophen (Tylenol 325mg Tab) 650 mg PO Q6 PRN PRN Reason: Pain, Mild (1-3) Last Admin: 09/18/18 22:39 Dose: 650 mg Dextrose (Dextrose 50% Inj) 0 ml IV STAT PRN; Protocol PRN Reason: Hypoglycemia Protocol Dextrose (Glutose 15) 0 gm PO ONCE PRN; Protocol PRN Reason: Hypoglycemia Protocol Glucagon (Glucagen Diagnostic Kit) 0 mg IM STAT PRN; Protocol PRN Reason: Hypoglycemia Protocol Heparin Sodium (Porcine) (Heparin) 5,000 units SC Q8 [facility] Last Admin: 09/20/18 13:05 Dose: Not Given Dextrose (Dextrose 5% In Water 1000 Ml) 1,000 mls @ 0 mls/hr IV .Q0M PRN; Protocol PRN Reason: Hypoglycemia Protocol Piperacillin Sod/Tazobactam (Sod 3.375 gm/ Sodium Chloride) 100 mls @ 200 mls/hr IVPB Q8H [facility]; Protocol Last Admin: 09/20/18 13:04 Dose: 200 mls/hr Vancomycin HCl 1 gm/ Sodium (Chloride) 250 mls @ 166.7 mls/hr IVPB Q24H [facility]; Protocol Last Admin: 09/19/18 21:14 Dose: 166.7 mls/hr Insulin Human Regular (Novolin R) 0 unit SC ACHS [facility]; Protocol Last Admin: 09/20/18 17:30 Dose: Not Given Lisinopril (Zestril) 10 mg PO DAILY [facility] Last Admin: 09/20/18 10:44 Dose: Not Given - Labs Labs: 09/18/18 18:17 09/18/18 18:45 PT 11.8 SECONDS (9.7-12.2) 09/18/18 18:27 INR 1.1 09/18/18 18:27 APTT 34 SECONDS (21-34) 09/18/18 18:27 - Constitutional Appears: Well, Non-toxic - Head Exam Head Exam: ATRAUMATIC, NORMOCEPHALIC - Eye Exam Eye Exam: Normal appearance - Cardiovascular Exam Cardiovascular Exam: REGULAR RHYTHM - Extremities Exam Additional comments: dressing clean, dry and intact. B/l LE focused exam: Vasc: DP/PT pulses fully palpable 1/4 b/l. Skin temperature warm to warm from proximal to distal WNL. CFT < 3 seconds to all digits b/l. Minimal edema noted to b/l LE Neuro: Epicritic and protective sensation grossly intact b/l Derm: Multiple superficial, circular ulcerations noted to anterior shins b/l. Erythema and minimal serous drainage noted to all wounds. No malodor, purulence, fluctuance, tracking, tunneling or undermining appreciated. No other clinical signs of infection noted. Toenails 1-5 noted to be dystrophic, elongated, and thickened MSK: Pain on palpation of all ulcer sites. No gross deformities noted - Neurological Exam Neurological Exam: Alert, Awake, Oriented x3 Assessment and Plan - Assessment and Plan (Free Text) Assessment: 73M with PMH diabetes seen and evaluated at bedside for b/l lower extremity ulcerations Plan: Patient seen and evaluated with Dr. Keller Afebrile, absent leukocytosis Continue abx F/u arterial duplex scan Wounds dressed with RIN Moreira No plan for surgical intervention at this time Podiatry will continue to follow while patient in house
[2018-09-21] MEDS: Piperacillin/Tazobact 3.375 GM in Sodium Chloride 100 ML IVPB SCH ×3 (04:51→21:41)
[2018-09-21] MEDS: (Novolin R) Insulin Human Regular 100 units/ml vial SC SCH ×4 (07:57→21:41)
[2018-09-21 09:12] LABS: BASO # 0.1 K/uL (0.0-0.2); BASO % 0.7 % (0.0-2.0); EOS # 0.3 K/uL (0.0-0.7); EOS % 3.2 % (0.0-4.0); HEMOGLOBIN 15.1 g/dL (12.0-18.0); LYMPH # 2.1 K/uL (1.0-4.3); LYMPH % 26.9 % (20.0-40.0); MEAN CORPUSCULAR HEMOGLOBIN 32.8 pg (27.0-31.0); MEAN CORPUSCULAR HGB CONC 33.9 g/dL (33.0-37.0); MEAN PLATELET VOLUME 7.7 fL (7.2-11.7); MONO # 0.6 K/uL (0.0-0.8); NEUT # 4.9 K/uL (1.8-7.0); NEUT % 62.2 % (50.0-75.0); RBC 4.61 Mil/uL (4.40-5.90); RED CELL DISTRIBUTION WIDTH 13.3 % (11.5-14.5); WHITE BLOOD COUNT 7.9 K/uL (4.8-10.8)
[2018-09-21 09:13] LABS: MEAN CELL VOLUME 96.5 fL (80.0-94.0)
[2018-09-21 09:37] LABS: ALB/GLOB RATIO 1.3 (1.0-2.1); ALBUMIN 4.3 g/dL (3.5-5.0); ALT/SGPT 9 U/L (21-72); AST/SGOT 34 U/L (17-59); BLOOD UREA NITROGEN 17 mg/dL (9-20); CALCIUM 9.4 mg/dl (8.6-10.4); GFR NON-AFRICAN AMERICAN > 60
[2018-09-21 10:26] LABS: HDL CHOLESTEROL 29 mg/dL (30-70)
[2018-09-21 10:37] LABS: LDL CHOLESTEROL 95 mg/dL (0-129)
--- NOTE | 2018-09-21 11:44 | CP.PCM.PN ---
Subjective - Date & Time of Evaluation Date of Evaluation: 09/21/18 Time of Evaluation: 10:00 - Subjective Subjective: Seen and examined This morning. Patient is in happy mood. 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 He says his leg is improving. Objective - Vital Signs/Intake and Output Vital Signs (last 24 hours): Temp Pulse Resp BP Pulse Ox 97.9 F 100 H 23 183/78 H 94 L 09/21/18 08:15 09/21/18 08:15 09/21/18 08:15 09/21/18 08:15 09/21/18 08:15 Intake and Output: 09/21/18 09/21/18 06:59 18:59 Intake Total 690 Balance 690 - Medications Medications: Current Medications Acetaminophen (Tylenol 325mg Tab) 650 mg PO Q6 PRN PRN Reason: Pain, Mild (1-3) Last Admin: 09/18/18 22:39 Dose: 650 mg Dextrose (Dextrose 50% Inj) 0 ml IV STAT PRN; Protocol PRN Reason: Hypoglycemia Protocol Dextrose (Glutose 15) 0 gm PO ONCE PRN; Protocol PRN Reason: Hypoglycemia Protocol Glipizide (Glucotrol) 5 mg PO ACB [facility] Glucagon (Glucagen Diagnostic Kit) 0 mg IM STAT PRN; Protocol PRN Reason: Hypoglycemia Protocol Heparin Sodium (Porcine) (Heparin) 5,000 units SC Q8 [facility] Last Admin: 09/21/18 06:09 Dose: Not Given Dextrose (Dextrose 5% In Water 1000 Ml) 1,000 mls @ 0 mls/hr IV .Q0M PRN; Protocol PRN Reason: Hypoglycemia Protocol Piperacillin Sod/Tazobactam (Sod 3.375 gm/ Sodium Chloride) 100 mls @ 200 mls/hr IVPB Q8H [facility]; Protocol Last Admin: 09/21/18 04:51 Dose: 200 mls/hr Vancomycin HCl 1 gm/ Sodium (Chloride) 250 mls @ 166.7 mls/hr IVPB Q24H [facility]; Protocol Last Admin: 09/20/18 21:30 Dose: 166.7 mls/hr Insulin Human Regular (Novolin R) 0 unit SC ACHS [facility]; Protocol Last Admin: 09/21/18 10:42 Dose: Not Given Lisinopril (Zestril) 10 mg PO DAILY [facility] Last Admin: 09/21/18 08:59 Dose: 10 mg - Labs Labs: 09/21/18 08:55 09/21/18 08:55 PT 11.8 SECONDS (9.7-12.2) 09/18/18 18:27 INR 1.1 09/18/18 18:27 APTT 34 SECONDS (21-34) 09/18/18 18:27 - Constitutional Appears: Non-toxic, No Acute Distress - Head Exam Head Exam: NORMAL INSPECTION - Eye Exam Eye Exam: Normal appearance - ENT Exam ENT Exam: Mucous Membranes Moist - Neck Exam Neck Exam: Full ROM - Respiratory Exam Respiratory Exam: Clear to Ausculation Bilateral, NORMAL BREATHING PATTERN - Cardiovascular Exam Cardiovascular Exam: REGULAR RHYTHM - GI/Abdominal Exam GI & Abdominal Exam: Soft, Normal Bowel Sounds - Extremities Exam Extremities Exam: Full ROM. absent: Normal Inspection - Back Exam Back Exam: NORMAL INSPECTION - Neurological Exam Neurological Exam: Awake, Oriented x3 (psychotic) - Psychiatric Exam Psychiatric exam: Normal Mood - Skin Skin Exam: Dry Assessment and Plan - Assessment and Plan (Free Text) Plan: 1. Cellulitis and infected leg wounds Open leg wounds, bilateral Blood Cx- NG x 48H wound positive for strep Acalactia Tylenol 650mg PO q6 prn Continue Vancomycin 1gm IVPB daily (started 09/18) and Zosyn 3.375gm IVPB q8 (started 09/18) Podiatry consulted: Dr. Keller - help appreciated Venous dopplers- prelim read negative,follow report Wound Care consulted 2. Diabetes Mellitus Untreated at home,HA1c 7 Start on glipizide discharge on glipizide and metformin 3. Hypertension Echo- LVEF 70%. No regional wall motion abnormalities noted. normal LV start on ACEI 4. 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 Patient will needs in patient psychotherapy for his psychosis 5.PPx DVT: Heparin 5000u SC q8, SCDs CI 2/2 leg wounds Diet: HHD, low Carb. Pork and Egg restricted POLST DNR/DNI follow PT and OT,need home card service and social service patient is not ready for discharge .His cellulites and infected wounds needs IV antibiotics
--- NOTE | 2018-09-21 15:13 | CP.PCM.PN ---
Subjective - Date & Time of Evaluation Date of Evaluation: 09/21/18 Time of Evaluation: 15:11 - Subjective Subjective: Podiatry Progress Note for Dr. Keller 73M with PMH diabetes seen and evaluated at bedside for b/l lower extremity ulcerations. He denies any pain to his wounds. Per nursing no overnight events. Objective - Vital Signs/Intake and Output Vital Signs (last 24 hours): Temp Pulse Resp BP Pulse Ox 97.9 F 100 H 23 149/71 94 L 09/21/18 08:15 09/21/18 08:15 09/21/18 08:15 09/21/18 12:00 09/21/18 08:15 Intake and Output: 09/21/18 09/21/18 06:59 18:59 Intake Total 690 340 Balance 690 340 - Medications Medications: Current Medications Acetaminophen (Tylenol 325mg Tab) 650 mg PO Q6 PRN PRN Reason: Pain, Mild (1-3) Last Admin: 09/18/18 22:39 Dose: 650 mg Dextrose (Dextrose 50% Inj) 0 ml IV STAT PRN; Protocol PRN Reason: Hypoglycemia Protocol Dextrose (Glutose 15) 0 gm PO ONCE PRN; Protocol PRN Reason: Hypoglycemia Protocol Glipizide (Glucotrol) 5 mg PO ACB [facility] Glucagon (Glucagen Diagnostic Kit) 0 mg IM STAT PRN; Protocol PRN Reason: Hypoglycemia Protocol Heparin Sodium (Porcine) (Heparin) 5,000 units SC Q8 [facility] Last Admin: 09/21/18 13:29 Dose: Not Given Dextrose (Dextrose 5% In Water 1000 Ml) 1,000 mls @ 0 mls/hr IV .Q0M PRN; Protocol PRN Reason: Hypoglycemia Protocol Piperacillin Sod/Tazobactam (Sod 3.375 gm/ Sodium Chloride) 100 mls @ 200 mls/hr IVPB Q8H [facility]; Protocol Last Admin: 09/21/18 13:22 Dose: 200 mls/hr Vancomycin HCl 1 gm/ Sodium (Chloride) 250 mls @ 166.7 mls/hr IVPB Q24H [facility]; Protocol Last Admin: 09/20/18 21:30 Dose: 166.7 mls/hr Insulin Human Regular (Novolin R) 0 unit SC ACHS [facility]; Protocol Last Admin: 09/21/18 10:42 Dose: Not Given Lisinopril (Zestril) 20 mg PO DAILY [facility] - Labs Labs: 09/21/18 08:55 09/21/18 08:55 PT 11.8 SECONDS (9.7-12.2) 09/18/18 18:27 INR 1.1 09/18/18 18:27 APTT 34 SECONDS (21-34) 09/18/18 18:27 - Constitutional Appears: Well, Non-toxic - Head Exam Head Exam: ATRAUMATIC, NORMOCEPHALIC - Eye Exam Eye Exam: Normal appearance - ENT Exam ENT Exam: Mucous Membranes Moist - Respiratory Exam Respiratory Exam: NORMAL BREATHING PATTERN - Cardiovascular Exam Cardiovascular Exam: REGULAR RHYTHM - Extremities Exam Additional comments: dressing clean, dry and intact. B/l LE focused exam: Vasc: DP/PT pulses fully palpable 1/4 b/l. Skin temperature warm to warm from proximal to distal WNL. CFT < 3 seconds to all digits b/l. Minimal edema noted to b/l LE Neuro: Epicritic and protective sensation grossly intact b/l Derm: Multiple superficial, circular ulcerations noted to anterior shins b/l. Erythema and minimal serous drainage noted to all wounds. No malodor, purulence, fluctuance, tracking, tunneling or undermining appreciated. No other clinical signs of infection noted. Toenails 1-5 noted to be dystrophic, elongated, and thickened MSK: Pain on palpation of all ulcer sites. No gross deformities noted - Neurological Exam Neurological Exam: Alert, Normal Gait Assessment and Plan - Assessment and Plan (Free Text) Assessment: 73M with PMH diabetes seen and evaluated at bedside for b/l lower extremity ulceration Plan: Patient seen and evaluated with Dr. Keller Afebrile, absent leukocytosis Continue abx F/u arterial duplex scan Wounds dressed with RIN Moreira No plan for surgical intervention at this time Podiatry will continue to follow while patient in house
[2018-09-21 16:41] VITALS: RESP 20
[2018-09-22 01:09] VITALS: O2SAT 95
[2018-09-22] MEDS: Piperacillin/Tazobact 3.375 GM in Sodium Chloride 100 ML IVPB SCH (05:09)
[2018-09-22] MEDS: (Novolin R) Insulin Human Regular 100 units/ml vial SC SCH ×2 (08:18→11:35)
[2018-09-22 08:55] VITALS: BP 158/67; PULSE 87; TEMP 98.2
[2018-09-22] MEDS ORDERED: Amoxicillin-Clav 875-125 mg Tab PO SCH (10:30)
--- NOTE | 2018-09-22 11:19 | VASCLAB ---
Date of service: 09/19/2018 PROCEDURE: Lower Extremity Venous Duplex Exam. HISTORY: LE swelling PRIORS: None. TECHNIQUE: Bilateral common femoral, femoral, popliteal and posterior tibial, peroneal and great saphenous veins were evaluated. Flow was assessed with color Doppler, compressibility, assessment of phasic flow and augmentation response. Report prepared by Herrera Vences, CLARIBEL, RVT FINDINGS: RIGHT: 1. Common Femoral Vein: 1.1. Compressibility - Fully compressible: Thrombus - None : Flow - Phasic: Augmentation -Normal: Reflux - None. 2. Femoral Vein: 2.1. Compressibility - Fully compressible: Thrombus - None : Flow - Phasic: Augmentation -Normal: Reflux - None. 3. Popliteal Vein: 3.1. Compressibility - Fully compressible: Thrombus - None : Flow - Phasic: Augmentation -Normal: Reflux - None. 4. Posterior Tibial Vein: 4.1. Compressibility - : Thrombus - : Flow - : Augmentation -Normal: Reflux - . 5. Peroneal Vein: 5.1. Compressibility - : Thrombus - : Flow - : Augmentation -: Reflux - . 6. Great Saphenous Vein: 6.1. Compressibility - Fully compressible: Thrombus - None: Flow - Phasic: Augmentation - Normal: Reflux - None. LEFT: 1. Common Femoral Vein: 1.1. Compressibility - Fully compressible: Thrombus - None: Flow - Phasic: Augmentation -Normal: Reflux - None. 2. Femoral Vein: 2.1. Compressibility - Fully compressible: Thrombus - None: Flow - Phasic: Augmentation -Normal: Reflux - None. 3. Popliteal Vein: 3.1. Compressibility - Fully compressible: Thrombus - None : Flow - Phasic: Augmentation -Normal: Reflux - None. 4. Posterior Tibial Vein: 4.1. Compressibility - : Thrombus - : Flow - : Augmentation -: Reflux - . 5. Peroneal Vein: 5.1. Compressibility - : Thrombus - : Flow - : Augmentation -: Reflux - . 6. Great Saphenous Vein: 6.1. Compressibility - Fully compressible: Thrombus - None: Flow - Phasic: Augmentation - Normal: Reflux - None. OTHER FINDINGS: Due to swelling in the calvies, both peroneal and posterior tibial vein kong not visualized. IMPRESSION: Right: No evidence of deep or superficial vein thrombosis of the right lower extremity. Normal valve function noted of the right side. Left: No evidence of deep or superficial vein thrombosis of the left lower extremity. Normal valve function noted of the left side.
--- NOTE | 2018-09-22 11:47 | CP.PCM.DIS ---
Provider - Provider Date of Admission: 09/18/18 19:48 Attending physician: Cornel Alcazar MD Consults: 09/18/18 21:04 Psychiatry Consult Routine Comment: Consulting Provider: Nicole Simeon Consulting Physician: Nicole Simeon Reason for Consult: grandiosity, disconnect from reality 09/18/18 21:13 Case Management Referral Routine Comment: Physician Instructions: Reason For Exam: new admit Reason for Referral: Discharge Planning 09/18/18 21:14 Palliative Care Consult Routine Comment: Consulting Provider: Lida Segura Physician Instructions: Reason For Exam: goals of care discussion, POLST 09/18/18 21:17 Podiatry Consult Routine Comment: Consulting Provider: Mahesh Keller Consulting Physician: Mahesh Keller Reason for Consult: LE ulcers, toenail/foot care 09/18/18 21:48 Case Management Referral Routine Comment: Physician Instructions: Reason For Exam: lives alone /new admit Reason for Referral: Split Leather Mosser Eval Nursing Referral for Wound Care Routine Comment: Physician Instructions: Reason For Exam: bilateral cellulitis Time Spent in preparation of Discharge (in minutes): 45 Diagnosis - Discharge Diagnosis (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 (2) DM (diabetes mellitus) Status: Acute (3) HTN (hypertension) Status: Acute (4) Cellulitis Status: Acute (5) Skin ulcer Status: Acute Hospital Course - Lab Results Lab Results: Micro Results 09/18/18 18:15 Blood Blood Culture - Preliminary NO GROWTH AFTER 3 DAYS 09/18/18 18:00 Blood Blood Culture - Preliminary NO GROWTH AFTER 3 DAYS 09/18/18 21:31 Leg - Right Gram Stain - Final 09/18/18 21:31 Leg - Right Wound Culture - Preliminary Gram Negative Ulices Strep Agalactiae Group B 09/19/18 00:49 Leg - Left Gram Stain - Final 09/19/18 00:49 Leg - Left Wound Culture - Final Strep Agalactiae Group B Most Recent Lab Values WBC 7.9 K/uL (4.8-10.8) 09/21/18 08:55 RBC 4.61 Mil/uL (4.40-5.90) 09/21/18 08:55 Hgb 15.1 g/dL (12.0-18.0) 09/21/18 08:55 Hct 44.5 % (35.0-51.0) 09/21/18 08:55 MCV 96.5 fL (80.0-94.0) H D 09/21/18 08:55 MCH 32.8 pg (27.0-31.0) H 09/21/18 08:55 MCHC 33.9 g/dL (33.0-37.0) 09/21/18 08:55 RDW 13.3 % (11.5-14.5) 09/21/18 08:55 Plt Count 325 K/uL (130-400) 09/21/18 08:55 MPV 7.7 fL (7.2-11.7) 09/21/18 08:55 Neut % (Auto) 62.2 % (50.0-75.0) 09/21/18 08:55 Lymph % (Auto) 26.9 % (20.0-40.0) 09/21/18 08:55 [place] % (Auto) 7.0 % (0.0-10.0) 09/21/18 08:55 Eos % (Auto) 3.2 % (0.0-4.0) 09/21/18 08:55 Baso % (Auto) 0.7 % (0.0-2.0) 09/21/18 08:55 Neut # (Auto) 4.9 K/uL (1.8-7.0) 09/21/18 08:55 Lymph # (Auto) 2.1 K/uL (1.0-4.3) 09/21/18 08:55 [place] # (Auto) 0.6 K/uL (0.0-0.8) 09/21/18 08:55 Eos # (Auto) 0.3 K/uL (0.0-0.7) 09/21/18 08:55 Baso # (Auto) 0.1 K/uL (0.0-0.2) 09/21/18 08:55 PT 11.8 SECONDS (9.7-12.2) 09/18/18 18:27 INR 1.1 09/18/18 18:27 APTT 34 SECONDS (21-34) 09/18/18 18:27 Sodium 140 mmol/L (132-148) 09/21/18 08:55 Potassium 4.1 mmol/L (3.6-5.2) 09/21/18 08:55 Chloride 107 mmol/L (98-107) 09/21/18 08:55 Carbon Dioxide 24 mmol/L (22-30) 09/21/18 08:55 Anion Gap 13 (10-20) 09/21/18 08:55 BUN 17 mg/dL (9-20) 09/21/18 08:55 Creatinine 0.8 mg/dL (0.8-1.5) 09/21/18 08:55 Est GFR ( Amer) > 60 09/21/18 08:55 Est GFR (Non-Af Amer) > 60 09/21/18 08:55 POC Glucose (mg/dL) 139 mg/dL (65-110) H 09/22/18 07:34 Random Glucose 130 mg/dL (75-110) H 09/21/18 08:55 Hemoglobin A1c 7.0 % (4.2-6.5) H 09/21/18 08:55 Calcium 9.4 mg/dl (8.6-10.4) 09/21/18 08:55 Total Bilirubin 0.7 mg/dL (0.2-1.3) 09/21/18 08:55 AST 34 U/L (17-59) 09/21/18 08:55 ALT 9 U/L (21-72) L D 09/21/18 08:55 Alkaline Phosphatase 94 U/L (38-126) 09/21/18 08:55 Total Protein 7.6 g/dL (6.3-8.3) 09/21/18 08:55 Albumin 4.3 g/dL (3.5-5.0) 09/21/18 08:55 Globulin 3.3 gm/dL (2.2-3.9) 09/21/18 08:55 Albumin/Globulin Ratio 1.3 (1.0-2.1) 09/21/18 08:55 Triglycerides 86 mg/dL (0-149) 09/21/18 08:55 Cholesterol 145 mg/dL (0-199) 09/21/18 08:55 LDL Cholesterol Direct 95 mg/dL (0-129) 09/21/18 08:55 HDL Cholesterol 29 mg/dL (30-70) L 09/21/18 08:55 25-OH Vitamin D Total 36.3 NG/ML (30.0-100.0) 09/21/18 09:16 TSH 3rd Generation 2.31 mIU/L (0.46-4.68) 09/21/18 08:55 Urine Color Yellow (YELLOW) 09/19/18 13:21 Urine Clarity Clear (Clear) 09/19/18 13:21 Urine pH 6.0 (5.0-8.0) 09/19/18 13:21 Ur Specific [place] 1.019 (1.003-1.030) 09/19/18 13:21 Urine Protein Negative mg/dL (NEGATIVE) 09/19/18 13:21 Urine Glucose (UA) Normal mg/dL (Normal) 09/19/18 13:21 Urine Ketones Negative mg/dL (NEGATIVE) 09/19/18 13:21 Urine Blood Negative (NEGATIVE) 09/19/18 13:21 Urine Nitrate Negative (NEGATIVE) 09/19/18 13:21 Urine Bilirubin Negative (NEGATIVE) 09/19/18 13:21 Urine Urobilinogen 4.0 mg/dL (0.2-1.0) 09/19/18 13:21 Ur Leukocyte Esterase Negative [place]/uL (Negative) 09/19/18 13:21 Urine WBC (Auto) 2 /hpf (0-5) 09/19/18 13:21 Urine RBC (Auto) 1 /hpf (0-3) 09/19/18 13:21 Urine Opiates Screen Negative (NEGATIVE) 09/19/18 13:21 Urine Methadone Screen Negative (NEGATIVE) 09/19/18 13:21 Ur Barbiturates Screen Negative (NEGATIVE) 09/19/18 13:21 Ur Phencyclidine Scrn Negative (NEGATIVE) 09/19/18 13:21 Ur Amphetamines Screen Negative (NEGATIVE) 09/19/18 13:21 U Benzodiazepines Scrn Negative (NEGATIVE) 09/19/18 13:21 U Oth Cocaine Metabols Negative (NEGATIVE) 09/19/18 13:21 U Cannabinoids Screen Negative (NEGATIVE) 09/19/18 13:21 - Hospital Course Hospital Course: LEFT AMA Patient was recommended to receive inpatient Psych Care, however refused and signed out AMA Pt was prescribed the following medications to take at home Amoxicillin/Clavulanate [Augmentin 875 MG-125 MG] 1 tab PO BID #20 tab GlipiZIDE [Glucotrol] 5 mg PO ACB #30 tab MetFORMIN [glucoPHAGE] 500 mg PO BID #60 tab Please follow up with the networking engineer Dr Keller within 7 days of discharge Patient was evaluated by Dr Simeon psychiatry: is still in need of inpatient Psych treatment, however he is with capacity and does not qualify for involuntary admission Pt left without his Metformin and Glipizide Rx, he only took his Augmentin Rx home. Pt states he will follow up with a PMD at his leisure Pt is still to return for an arterial duplex, study was read as venous, pt instructed on complications associated with his vessel insufficiency and will need follow up care. Pt refused further treatment and will only take the antibiotics. does not want anymore "blood medicine or tests" take care and be well CK PGY1 Discharge Exam - Head Exam Head Exam: ATRAUMATIC, NORMOCEPHALIC - Psychiatric Exam Psychiatric exam: Agitated, Manic Additional comments: grandiose ideas, reality disconnect - Additional Findings Additional findings: - Head Exam Head Exam: ATRAUMATIC, NORMOCEPHALIC - Eye Exam Eye Exam: Normal appearance - ENT Exam ENT Exam: Mucous Membranes Moist - Respiratory Exam Respiratory Exam: NORMAL BREATHING PATTERN - Cardiovascular Exam Cardiovascular Exam: REGULAR RHYTHM - Extremities Exam Additional comments: dressing clean, dry and intact. B/l LE focused exam: Vasc: DP/PT pulses fully palpable 1/4 b/l. Skin temperature warm to warm from proximal to distal WNL. CFT < 3 seconds to all digits b/l. Minimal edema noted to b/l LE Neuro: Epicritic and protective sensation grossly intact b/l Derm: Multiple superficial, circular ulcerations noted to anterior shins b/l. Erythema and minimal serous drainage noted to all wounds. No malodor, purulence, fluctuance, tracking, tunneling or undermining appreciated. No other clinical signs of infection noted. Toenails 1-5 noted to be dystrophic, elongated, and thickened MSK: Pain on palpation of all ulcer sites. No gross deformities noted - Neurological Exam Neurological Exam: Alert, Normal Gait Discharge Plan - Discharge Medications Prescriptions: Amoxicillin/Clavulanate [Augmentin 875 MG-125 MG] 1 tab PO BID #20 tab GlipiZIDE [Glucotrol] 5 mg PO ACB #30 tab MetFORMIN [glucoPHAGE] 500 mg PO BID #60 tab - Follow Up Plan Condition: FAIR Disposition: HOME/ ROUTINE Additional Instructions: Patient was recommended to receive inpatient Psych Care, however refused and sig jassi out AMA Pt was prescribed the following medications to take at home Amoxicillin/Clavulanate [Augmentin 875 MG-125 MG] 1 tab PO BID #20 tab GlipiZIDE [Glucotrol] 5 mg PO ACB #30 tab MetFORMIN [glucoPHAGE] 500 mg PO BID #60 tab Please follow up with the networking engineer Dr Keller within 7 days of discharge Patient is still in need of inpatient Psych treatment, however he is with capacity and does not qualify for involuntary admission Pt left without his Metformin and Glipizide Rx, he only took his Augmentin Rx home. Pt states he will follow up with a PMD at his leisure Pt is still to return for an arterial duplex, study was read as venous, pt instructed on complications associated with his vessel insufficiency and will need follow up care. Pt refused further treatment and will only take the antibiotics. does not want anymore "blood medicine or tests" take care and be well CK PGY1
--- NOTE | 2018-09-22 12:11 | PCM.PYCHPN ---
Psychiatric Progress Note - Psychiatric Progress Note Patient seen today, length of contact: 18 min Patient Chief Complaint: "I'm angry" Medication Change: Yes (prn haldol for agitation) Medical Record Reviewed: Yes Mental Status Examination - Cognitive Function Orientation: Person, Place, Situation, Time Memory: Impaired Attention: Poor Concentration: Poor Association: Loose Fund of Knowledge: Poor - Mood Mood: Other (irate) - Affect Affect: Constricted - Speech Speech: Loud - Formal Thought Process Formal Thought Process: Paranoia, Loosening of associations (mild) - Suicidal Ideation Suicidal Ideation: No - Homicidal Ideation Homicidal Ideation: No Goal/Treatment Plan - Goal/Treatment Plan Progress Toward Problem(s) and Goals/Treatment Plan: He does not want any psych meds again Support and psych given Risks of leaving early discussed. He will come to [facility] for f/u and consider CRC
== END 2018-09-22 12:06 | disposition left against medical advice (07) | DRG 638 ==
LOC: C.ER 16:38 → C.9E 19:48 → C.3T 20:23
PROVIDERS: ADMIT Family Medicine; ATTEND Family Medicine
DX: E11.621 Type 2 diabetes mellitus with foot ulcer (principal); L03.116 Cellulitis of left lower limb; L03.115 Cellulitis of right lower limb; E11.622 Type 2 diabetes mellitus with other skin ulcer; L97.829 Non-pressure chronic ulcer of other part of left lower leg with unspecified severity; L97.819 Non-pressure chronic ulcer of other part of right lower leg with unspecified severity; L97.429 Non-pressure chronic ulcer of left heel and midfoot with unspecified severity; L97.419 Non-pressure chronic ulcer of right heel and midfoot with unspecified severity; E11.51 Type 2 diabetes mellitus with diabetic peripheral angiopathy without gangrene; E11.65 Type 2 diabetes mellitus with hyperglycemia; F20.9 Schizophrenia, unspecified; I10 Essential (primary) hypertension; B95.4 Other streptococcus as the cause of diseases classified elsewhere; Z53.20 Procedure and treatment not carried out because of patient's decision for unspecified reasons; E66.9 Obesity, unspecified; Z66 Do not resuscitate; Z79.84 Long term (current) use of oral hypoglycemic drugs; Z87.891 Personal history of nicotine dependence; Z83.3 Family history of diabetes mellitus; Z82.5 Family history of asthma and other chronic lower respiratory diseases